=== PATIENT | female | born 2005 | race Two or more races ===

== ENCOUNTER 2023-05-11 21:07 | Emergency (ER) | payer MEDICAID ==
[~2023-05-11] VITALS: Ht 165.1 cm; Wt 97.7 kg
[2023-05-11 21:26] VITALS: BP 133/89; PULSE 96; RESP 18; TEMP 98; O2SAT 100
== END 2023-05-12 01:03 | disposition left against medical advice (07) ==
LOC: ER 21:08
DX: J11.1 Influenza due to unidentified influenza virus with other respiratory manifestations (principal); Z53.21 Procedure and treatment not carried out due to patient leaving prior to being seen by health care provider
CPT/HCPCS: 87502; 87503; 99281